=== PATIENT | male | born 1935 | race Caucasian/White ===

== ENCOUNTER → 2016-08-05 | Outpatient (CLI) | payer OTHER ==
--- NOTE | 2016-08-05 15:28 | MR ---
MRI Cervical Spine (Without Contrast) at 1233 hours History: R20.2, paresthesias, idiopathic peripheral neuropathy, G60.9, right hand weakness, M62.81. Technique: Sagittal T1, T2, axial T2, and 3-D gradient echo MR sequences of the cervical spine withou t contrast. Findings: No evidence of cervical compression fractures or destructive osseous lesions. Multilevel cord compression and deformity at C2-C3, C3-C4, C4-C5, C5-C6, C6-C7, and T1-T2 with cord compression and deformity, resulting in abnormal increased signal within the cervical spinal cord from C3 through C7, consistent with cord edema. No evidence of myelomalacia. Cerebellar tonsils are in normal positi on. C2-C3: Moderate degenerative disk disease with dorsal disk/osteophyte complex, left uncovertebral ost eophytes, severe left facet arthropathy and mild right facet arthropathy, resulting in moderate to se bret central canal stenosis with slight cord compression and deformity, moderate to severe left neura l foraminal stenosis and mild to moderate right neural foraminal stenosis. C3-C4: Severe degenerative disk disease with severe loss of disk height, dorsal disk/osteophyte compl ex, right uncovertebral osteophytes and moderate bilateral facet arthropathy, resulting in degenerati ve grade 1 retrolisthesis, severe central canal stenosis with cord compression and deformity, severe right neural foraminal stenosis and moderate left neural foraminal stenosis. C4-C5: Severe degenerative disk disease with severe loss of disk height, dorsal disk/osteophyte compl ex, bilateral uncovertebral osteophytes, severe right facet arthropathy and moderate left facet arthr opathy, resulting in severe central canal stenosis with cord compression and deformity, complete effa cement of the subarachnoid space, and severe bilateral neural foraminal stenosis, right worse than le ft. C5-C6: Severe degenerative disk disease with dorsal disk/osteophyte complex, degenerative retrolisthe sis, bilateral uncovertebral osteophytes, right greater than left, and moderate bilateral facet arthr opathy, resulting in severe central canal stenosis with complete effacement of the subarachnoid space , cord compression and edema, and severe bilateral neural foraminal stenosis, right worse than left. C6-C7: Severe degenerative disk disease with dorsal disk/osteophyte complex, degenerative retrolisthe sis, bilateral uncovertebral osteophytes and mild bilateral facet arthropathy, resulting in moderate to severe central canal stenosis with slight cord compression, and mild to moderate bilateral neural foraminal stenosis. C7-T1: Moderate degenerative disk disease and severe bilateral facet arthropathy with degenerative gr solomon 1 anterolisthesis, resulting in severe bilateral neural foraminal stenosis, right worse than left , without central canal stenosis. T1-T2: Severe degenerative disk disease with severe loss of disk height, degenerative grade 1 anterol isthesis, dorsal disk/osteophyte complex and bilateral facet arthropathy, resulting in moderate centr al canal stenosis with slight cord compression and deformity, and severe bilateral neural foraminal s tenosis. Sagittal images at T2-T3 and T3-T4 also demonstrate moderate degenerative disk disease with dorsal di sk/osteophyte complexes, degenerative grade 1 anterolisthesis, resulting in mild central canal stenos is and mild to moderate bilateral neural foraminal stenosis, worse at T2-T3. No axial imaging through this region. Impression: 1. Multilevel severe degenerative disk disease and moderate to severe bilateral facet arthropathy fro m C2-C3 through T3-T4, worst at C3-C4, C4-C5, C5-C6, and C6-C7, resulting in severe central canal connie nosis with cord compression, cord deformity, and cord edema, especially from C2-C3 through C6-C7, and multilevel moderate to severe bilateral neural foraminal stenosis. 2. Multilevel cord edema and myelomalacia, secondary to cord compression and deformity from the sever e degenerative disk disease and facet arthropathy without evidence of myelomalacia. 3. Please see above findings at specific disk levels. A follow-up required test result notification was sent via the [employer] service, 3:13:49 PM, 08/05/2016 , [employer] Message ID [id number]. Findings and recommendations discussed with Dr. Zoe Ramirez at 1515 hours today.
== END ==
LOC: FIMAGING 11:58
PROVIDERS: ATTEND Psychiatry & Neurology Neurology
DX: M50.30 Other cervical disc degeneration, unspecified cervical region (principal); M51.34 Other intervertebral disc degeneration, thoracic region; G95.89 Other specified diseases of spinal cord; R20.2 Paresthesia of skin; G60.9 Hereditary and idiopathic neuropathy, unspecified; M62.81 Muscle weakness (generalized)

== ENCOUNTER → 2017-01-07 | Outpatient (CLI) | payer OTHER | LOC: BMCIMAGING 13:30 | PROVIDERS: ATTEND Internal Medicine | DX: I65.21 Occlusion and stenosis of right carotid artery (principal); R55 Syncope and collapse ==

== ENCOUNTER → 2017-01-21 | Outpatient (CLI) | payer OTHER ==
--- NOTE | 2017-01-23 18:32 | CPEEG ---
[f rep st] ELECTROENCEPHALOGRAM ELECTROENCEPHALOGRAM. DATE OF STUDY: 01/21/2017 DATE OF INTERPRETATION: 01/23/2017. INTERPRETATION: Normal EEG during wakefulness and partial sleep. There were no potentially epilept ogenic abnormalities present during the recording. REPORT: This EEG contains 9 Hz alpha activity to the posterior head regions. There was no abnormal activation at rest, during photic stimulation, or hyperventilation. After hyperventilation, the pa tiemario had a normal hyperventilation buildup response composed of anterior-dominant rhythmic delta wa ves. The patient became drowsy and fell into light sleep during the study. There was no abnormal a ctivation during drowsiness, sleep, or during times of arousal. /[id number]/MODL
== END ==
LOC: FCPNEURO 12:59
PROVIDERS: ATTEND Psychiatry & Neurology Neurology
DX: R40.20 Unspecified coma (principal)

== ENCOUNTER → 2017-01-22 | Outpatient (CLI) | payer OTHER ==
[~2017-01-22] MED LIST: GADOBUTROL 10 ML VIAL IVP ONE
== END ==
LOC: FIMAGING 15:30
PROVIDERS: ATTEND Psychiatry & Neurology Neurology
DX: Z86.73 Personal history of transient ischemic attack (TIA), and cerebral infarction without residual deficits (principal); R94.02 Abnormal brain scan
CPT/HCPCS: 70553; A9585